=== PATIENT | female | born 1990 | race Caucasian/White ===

== ENCOUNTER 2017-05-19 15:59 | Inpatient (IN) ==
[2017-05-19 16:41] LABS: Basophils % 0.4 %; Eosinophils # 0.1 K/mcL (0.0-0.6); Hematocrit 41.4 % (35.3-44.9); Hemoglobin 13.6 g/dL (11.5-15.4); Immature Granulocytes % 0.4 % (0-4); Immature Platelets 9.2 % (1.1-6.1); Mean Corpuscular HGB Conc 32.9 g/dL (31.6-35.5); Mean Corpuscular Hemoglobin 29.4 pg (28.0-33.3); Mean Corpuscular Volume 89.6 fL (83.0-100.0); Mean Platelet Volume 11.5 fL (9.4-12.4); Monocytes # 0.3 K/mcL (0.0-1.3); Monocytes % 5.1 %; Neutrophils # 2.1 K/mcL (1.6-8.9); Platelet Count 168 K/mcL (140-400); Red Blood Count 4.62 M/mcL (3.82-4.97); Red Cell Distribution Width 12.5 % (11.5-14.5); Segmented Neutrophils % 41.1 %
[2017-05-19 16:46] LABS: Lymphocytes # 2.7 K/mcL (0.6-4.6); Platelet Estimate Normal (Normal); Reactive Lymphocytes Present (Not Present)
[2017-05-19 16:52] LABS: Bilirubin,Urine Negative (Negative); Blood,Urine Negative (Negative); Clarity,Urine Clear (Clear); Color,Urine Yellow (Yellow); Glucose,Urine (UA) >=1000 mg/dL (Normal); Ketones,Urine Negative (Negative); Leukocyte Esterase,Urine Negative (Negative); Nitrite,Urine Negative (Negative); PH,Urine 6.5 pH Units (5.0-8.0); Protein,Urine Negative (Neg-Trace); Specific Gravity,Urine > 1.030 (1.010-1.025); Urobilinogen,Urine Normal (Normal)
[2017-05-19 16:53] LABS: Amphetamine Screen,Urine Positive ng/mL (Cutoff=1000); Barbiturate Screen,Urine Negative ng/mL (Cutoff=200); Benzodiazepines Screen,Urine Negative ng/mL (Cutoff=200); Cannabinoid Screen,Urine Negative ng/mL (Cutoff = 50); Cocaine Screen,Urine Negative ng/mL (Cutoff= 300); Opiate Screen,Urine Negative ng/mL (Cutoff=300); Phencyclidine Screen,Urine Negative ng/mL (Cutoff=25)
[2017-05-19 16:56] LABS: Acetaminophen < 1.0 mcg/mL (10-30); Ethanol < 10 mg/dL (0-10); Salicylate < 5.0 mg/dL (15.0-30.0)
--- NOTE | 2017-05-19 17:14 | Emergency Department Note ---
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 She attempted to 4 Days Ago Just by Overdosing on Heroin. Patient Has Significant Depression and Coronary Artery Denies Any Other Symptoms or Issues at This Time. Patient Came for Help. Pt complaint: suicidal ideation, feels depressed Onset (ago): day(s) Duration: constant History of similar episodes: Yes Improves with: none Worsens with: other Context: recent drug abuse Alleged intoxication: No Associated Psychiatric Symptoms: depression, suicidal ideation Associated symptoms: Reports: denies other symptoms Self harm or harm to others: admits thoughts of self harm, has plan, has acted on plan, intentional overdose - Related Data Allergies Allergy/AdvReac Type Severity Reaction Status Date / Time No Known Allergies Allergy Verified 05/19/17 16:05 All systems ED: reviewed and negative except as stated. Review of Systems: As Per HPI Constitutional: Denies: fever Cardiovascular: Denies: chest pain, palpitations, dyspnea on exertion Respiratory: Denies: cough Gastrointestinal: Denies: nausea, vomiting, diarrhea Genitourinary: Denies: dysuria, frequency Musculoskeletal: Denies: back pain, neck pain Neurological: Denies: headache, weakness Psychiatric: Reports: depression, suicidal thoughts Endocrine: Denies: fatigue Past Medical History - Past Medical History Attestation: Yes The following information was validated with the patient. Source: patient Medical history: Reports: diabetes Psychiatric history: Reports: anxiety, depression - Social History Smoking Status: Current every day smoker Alcohol use: Reports: none Drug use: Reports: methamphetamine, prescription drug abuse Physical Exam - General Limitations: no limitations General appearance: alert, in no apparent distress - Head Head exam: atraumatic, normocephalic, normal inspection - ENT ENT exam: normal exam, normal oropharynx, mucous membranes moist - Neck Neck exam: Present: normal inspection, full ROM, trachea midline. Absent: tenderness - Respiratory Respiratory exam: Present: normal lung sounds bilaterally. Absent: respiratory distress - Cardiovascular Cardiovascular exam: Present: regular rate, normal rhythm, normal heart sounds - Abdominal Exam Abdominal exam: Present: soft, Non-Tender. Absent: tenderness, distention, guarding, rebound, rigidity - Extremities Exam Extremities exam: Present: normal inspection - Back Exam Back exam: Present: normal inspection, full ROM. Absent: tenderness - Neurological Exam Neurological exam: Present: alert, oriented X3, CN II-XII intact, normal gait - Skin Skin exam: Present: warm, dry, intact, normal color Course Course Narrative: Patient seen and examined this on arrival. See history of present illness. 6- year-old female with long history of substance abuse presents emergency room with suicidal ideation. Patient attempted to kill herself 4 days ago by overdosing on heroin. Patient is been significantly depressed and feels like she does not want. Denies any other medication ingestions at this time. Patient does have psychiatric history. Family member does have schizophrenia and bipolar. Patient does have what appears to be a significant bipolar presentation this time with a severely depressed stage at this point. Patient will be medically cleared. Patient denies any fevers chills nausea vomiting diarrhea. Denies chest pain shortness breath headache or vision change. Main complaint and evaluation of this time is the depression and suicidal ideation. Medical clearance lab evaluation to be completed at this time and consultation by psychiatric team will be established - Reevaluation(s) Reevaluation #1: Patient found to have significantly elevated glucose of greater than 1000. Patient also has hyponatremia. Corrected sodium is in the 1:30 range. Patient has what appears to be hyperosmolar hyperglycemic issue at this time. Fluids will be provided as well as single dose of insulin here in the emergency room. Patient will be admitted for medical evaluation and psychiatric consultation. No other concerns or issues. She does not appear to have a capped diabetic ketoacidosis Time: 17:24 Reevaluation #2: Patient was discussed with the hospitalist. No other concerns or issues. Patient will be admitted for definitive management at this time. Psychiatric team will be consulted in transit to the floor. Time: 18:05 Vital Signs Temperature 97.6 F 05/19/17 16:01 Pulse Rate 88 05/19/17 16:01 Respiratory Rate 16 05/19/17 16:01 Blood Pressure 115/82 05/19/17 16:01 O2 Sat by Pulse Oximetry 100 05/19/17 16:01 Temperature 97.6 F 05/19/17 16:01 Pulse Rate 88 05/19/17 16:01 Respiratory Rate 16 05/19/17 16:01 Blood Pressure 115/82 05/19/17 16:01 O2 Sat by Pulse Oximetry 100 05/19/17 16:01 Oxygen Delivery Oxygen Delivery Room Air Psych - MDM Narrative Medical decision making narrative: Suicidal ideation - Lab Data Lab results reviewed: Yes I reviewed the patient's lab results. Result diagrams: 05/19/17 16:33 05/19/17 16:33 Lab Results 05/19/17 05/19/17 05/19/17 Range/Units 16:33 16:33 16:35 WBC 5.1 (4.3-11.1) K/mcL RBC 4.62 (3.82-4.97) M/mcL Hgb 13.6 (11.5-15.4) g/dL Hct 41.4 (35.3-44.9) % MCV 89.6 (83.0-100.0) fL MCH 29.4 (28.0-33.3) pg MCHC 32.9 (31.6-35.5) g/dL RDW 12.5 (11.5-14.5) % Plt Count 168 (140-400) K/mcL MPV 11.5 (9.4-12.4) fL Immature Gran % 0.4 (0-4) % Seg Neutrophils % 41.1 % Lymphocytes % 52.0 % Monocytes % 5.1 % Eosinophils % 1.0 % Basophils % 0.4 % Neutrophils # 2.1 (1.6-8.9) K/mcL Lymphocytes # 2.7 (0.6-4.6) K/mcL Monocytes # 0.3 (0.0-1.3) K/mcL Eosinophils # 0.1 (0.0-0.6) K/mcL Basophils # 0.0 (0.0-0.2) K/mcL Reactive Lymphocytes Present A (Not Present) Platelet Estimate Normal (Normal) Immature Plt Fraction 9.2 H (1.1-6.1) % Sodium 117 L* (136-145) mEq/L Potassium 4.5 (3.5-5.1) mEq/L Chloride 84 L (98-107) mEq/L Carbon Dioxide 25 (23-29) mEq/L BUN 14 (6-20) mg/dL Creatinine 0.79 (0.60-1.20) mg/dL Est GFR ( Amer) > 60 (> 60) Est GFR (Non-Af Amer) > 60 (> 60) BUN/Creatinine Ratio 18 (6-26) Glucose 1047 H* (70-105) mg/dL Calculated Osmolality 297 (280-300) Calcium 9.3 (8.6-10.3) mg/dL TSH 0.587 (0.340-5.600) mcIU/mL Urine Color Yellow (Yellow) Urine Clarity Clear (Clear) Urine pH 6.5 (5.0-8.0) pH Units Ur Specific [place] > 1.030 H (1.010-1.025) Urine Protein Negative (Neg-Trace) mg/dL Urine Glucose (UA) >=1000 H (Normal) mg/dL Urine Ketones Negative (Negative) mg/dL Urine Blood Negative (Negative) Urine Nitrite Negative (Negative) Urine Bilirubin Negative (Negative) Urine Urobilinogen Normal (Normal) mg/dL Ur Leukocyte Esterase Negative (Negative) Salicylates < 5.0 L (15.0-30.0) mg/dL Urine Opiates Screen (Cugkhm=256) ng/mL Acetaminophen < 1.0 L (10-30) mcg/mL Ur Barbiturates Screen (Nmbreb=554) ng/mL Ur Phencyclidine Scrn (Cutoff=25) ng/mL Ur Amphetamines Screen (Jkzkln=7174) ng/mL U Benzodiazepines Scrn (Ipaywl=867) ng/mL Urine Cocaine Screen (Cutoff= 300) ng/mL U Marijuana (THC) Screen (Cutoff = 50) ng/mL Ethyl Alcohol < 10 (0-10) mg/dL 05/19/17 Range/Units 16:35 WBC (4.3-11.1) K/mcL RBC (3.82-4.97) M/mcL Hgb (11.5-15.4) g/dL Hct (35.3-44.9) % MCV (83.0-100.0) fL MCH (28.0-33.3) pg MCHC (31.6-35.5) g/dL RDW (11.5-14.5) % Plt Count (140-400) K/mcL MPV (9.4-12.4) fL Immature Gran % (0-4) % Seg Neutrophils % % Lymphocytes % % Monocytes % % Eosinophils % % Basophils % % Neutrophils # (1.6-8.9) K/mcL Lymphocytes # (0.6-4.6) K/mcL Monocytes # (0.0-1.3) K/mcL Eosinophils # (0.0-0.6) K/mcL Basophils # (0.0-0.2) K/mcL Reactive Lymphocytes (Not Present) Platelet Estimate (Normal) Immature Plt Fraction (1.1-6.1) % Sodium (136-145) mEq/L Potassium (3.5-5.1) mEq/L Chloride (98-107) mEq/L Carbon Dioxide (23-29) mEq/L BUN (6-20) mg/dL Creatinine (0.60-1.20) mg/dL Est GFR ( Amer) (> 60) Est GFR (Non-Af Amer) (> 60) BUN/Creatinine Ratio (6-26) Glucose (70-105) mg/dL Calculated Osmolality (280-300) Calcium (8.6-10.3) mg/dL TSH (0.340-5.600) mcIU/mL Urine Color (Yellow) Urine Clarity (Clear) Urine pH (5.0-8.0) pH Units Ur Specific [place] (1.010-1.025) Urine Protein (Neg-Trace) mg/dL Urine Glucose (UA) (Normal) mg/dL Urine Ketones (Negative) mg/dL Urine Blood (Negative) Urine Nitrite (Negative) Urine Bilirubin (Negative) Urine Urobilinogen (Normal) mg/dL Ur Leukocyte Esterase (Negative) Salicylates (15.0-30.0) mg/dL Urine Opiates Screen Negative (Zmazyz=095) ng/mL Acetaminophen (10-30) mcg/mL Ur Barbiturates Screen Negative (Whzdaq=507) ng/mL Ur Phencyclidine Scrn Negative (Cutoff=25) ng/mL Ur Amphetamines Screen Positive H (Vxfhyj=1704) ng/mL U Benzodiazepines Scrn Negative (Vfuivw=244) ng/mL Urine Cocaine Screen Negative (Cutoff= 300) ng/mL U Marijuana (THC) Screen Negative (Cutoff = 50) ng/mL Ethyl Alcohol (0-10) mg/dL Psychiatric Medical Clearance - Medical Clearance Checklist Does the patient have a NEW psychiatric condition?: No Any abnormalities indicating possible medical illness?: No Any history of medical issues?: No Medical History: Suicidal ideation (Acute) Depression (Acute) No Social History Section defined Any abnormal vital signs prior to transfer?: No Current Vitals: Last Vital Signs Temp 97.6 F 05/19/17 16:01 Pulse 88 05/19/17 16:01 Resp 16 05/19/17 16:01 BP 115/82 05/19/17 16:01 Pulse Ox 100 05/19/17 16:01 Is the patient intoxicated or cognitively impaired?: No Psychiatric Lab Panel: Drug Levels and Toxicity 05/19/17 05/19/17 16:33 16:35 Urine Opiates Screen Negative Acetaminophen < 1.0 L Ur Barbiturates Screen Negative Ur Phencyclidine Scrn Negative Ur Amphetamines Screen Positive H U Benzodiazepines Scrn Negative Urine Cocaine Screen Negative U Marijuana (THC) Screen Negative Ethyl Alcohol < 10 Any abnormalities on the physical exam?: No Any abnormal labs?: No Abnormal Labs: Abnormal lab results Reactive Lymphocytes Present (Not Present) A 05/19/17 16:33 Immature Plt Fraction 9.2 % (1.1-6.1) H 05/19/17 16:33 Sodium 117 mEq/L (136-145) L* 05/19/17 16:33 Chloride 84 mEq/L (98-107) L 05/19/17 16:33 Glucose 1047 mg/dL (70-105) H* 05/19/17 16:33 Ur Specific [place] > 1.030 (1.010-1.025) H 05/19/17 16:35 Urine Glucose (UA) >=1000 mg/dL (Normal) H 05/19/17 16:35 Salicylates < 5.0 mg/dL (15.0-30.0) L 05/19/17 16:33 Acetaminophen < 1.0 mcg/mL (10-30) L 05/19/17 16:33 Ur Amphetamines Screen Positive ng/mL (Zyzdpa=9263) H 05/19/17 16:35 Does the patient require durable medical equiptment?: No Is the patient ambulatory?: Yes Is the patient a fall risk?: No Has the patient been medically cleared?: Yes Any acute medical condition require Tx prior to transfer?: No Statement of Medical Clearance: I have evaluated the patient, reviewed diagnostic information, and certify that the patient's medical condition is sufficiently stable that transfer to the psychiatric unit does not pose a significant risk of deterioration.
[2017-05-19 17:22] LABS: BUN/Creatinine Ratio 18 (6-26); Blood Urea Nitrogen 14 mg/dL (6-20); Calcium 9.3 mg/dL (8.6-10.3); Carbon Dioxide 25 mEq/L (23-29); Chloride 84 mEq/L (98-107); Glucose 1047 mg/dL (70-105); Osmolality,Calculated 297 (280-300); Potassium 4.5 mEq/L (3.5-5.1); Sodium 117 mEq/L (136-145); Thyroid Stimulating Hormone 0.587 mcIU/mL (0.340-5.600); eGFR For African Americans > 60 (> 60); eGFR For Non-African Americans > 60 (> 60)
[2017-05-19] MEDS ORDERED: 0.9 % Sodium Chloride 1,000 ML IVC ONE (17:23)
[2017-05-19] MEDS ORDERED: Insulin Human Regular 10 UNIT in 0.9 % Sodium Chloride 10 ML IV ONE (17:25)
[2017-05-19] MEDS ORDERED: *HR* LORazepam 2 MG/ML VIAL IVP ONE (18:05)
[2017-05-19 18:22] LABS: VBG HCO3 27 mEq/L (21-27); VBG PCO2 49 mmHg (41-51); VBG PH 7.35 pH Units (7.32-7.42); VBG PO2 46 mmHg (25-50)
[2017-05-19] MEDS ORDERED: D5% in 0.45% NACL 1,000 ML IVC PRN (20:09)
[2017-05-19] MEDS ORDERED: D5% in 0.45% NACL w KCl 20 MEQ/1,000 ML MLS IVC PRN (20:09)
[2017-05-19] MEDS ORDERED: Insulin Regular, Human 100 UNIT/ML IV PRN ×2 (20:09)
[2017-05-19] MEDS ORDERED: *HR* Dextrose 50 % in Water (Syg) 50 ML SYRINGE IVP PRN (20:09)
[2017-05-19] MEDS ORDERED: Naloxone 0.4 MG/ML INJ IVP PRN (20:13)
[2017-05-19] MEDS ORDERED: Insulin Human Regular 100 UNIT in 0.9 % Sodium Chloride 100 ML IVC SCH (20:15)
[2017-05-19] MEDS ORDERED: 0.9 % Sodium Chloride 1,000 ML IVC PRN (20:15)
[2017-05-19] MEDS ORDERED: 0.45 % Sodium Chloride w/KCl 20 MEQ/1,000 ML MLS IVC SCH ×2 (20:15)
[2017-05-19] MEDS ORDERED: 0.9 % Sodium Chloride 1,000 ML IVC SCH (20:15)
--- NOTE | 2017-05-19 20:17 | Internal Med History&Physical ---
Date of Encounter: 05/19/17 Time of Encounter: 20:21 Assessment and Plan (1) Uncontrolled type 2 DM with hyperosmolar nonketotic hyperglycemia Current visit: Yes Status: Acute HHS protocol, insulin gtt, close CBG monitoring Ivf high risk for decompensation check CXR, EKG UA unremarkable Etiology of HHS likely lack of compliance due to depression/suicidal ideations (2) Suicidal ideation Current visit: Yes Status: Acute duo- dx urine tox with meth consult psych sitter suicide watch treat medical illness above (3) Hyponatremia Current visit: Yes Status: Acute likely related dehydration and hyperglycemia - treat above (4) Depression Current visit: Yes Status: Acute Qualifiers: Depression Type: major depressive disorder Major depression episode severity: severe Psychotic features: without psychotic features Qualified Code(s): F32.2 - Major depressive disorder, single episode, severe without psychotic features Internal Medicine - H&P: HPI Chief complaint: Nausea/emesis, generalized weakness, fatigue History of present illness: Ms. Roth is a 26 year old female with hx of depression, DMI who presents with Nausea/emesis, generalized weakness, fatigue. Found HHS along with suicidal ideations. She is suppose to use insulin at home for DMI but she has been depressed lately and thought that if her sugars were out of control, she would not live long. She hopes that she could sleep and sleep and not wake up. She ran away from home and it was her mother who brought her in. She mentions that she "can't put her feelings into words". On review, she has some calvin-umbilical epigastric discomfort. EKG not available Past Med Surg Social Fam HX - Past Medical History Medical history: diabetes Psychiatric history: anxiety, depression - Social History Smoking Status: Current every day smoker Alcohol use: none Drug use: methamphetamine, prescription drug abuse Internal Medicine - H&P: Meds 3 Allergy/AdvReac Type Severity Reaction Status Date / Time No Known Allergies Allergy Verified 05/19/17 16:05 All Systems PM: A 10-system review of systems was performed and is negative for pertinent findings except as documented above in the HPI. Review of systems: ROS 14 point review of systems reviewed as best as possible given presentation. Pertinent positive or negative as per HPI or otherwise reviewed as negative - Constitutional Vitals: Temp Pulse Resp BP Pulse Ox 97.6 F 88 16 115/82 100 05/19/17 16:01 05/19/17 16:01 05/19/17 16:01 05/19/17 16:01 05/19/17 16:01 Exam: General - AAO x 3 Psych - Appropriate affect/speech. No agitation Eyes - RINA. Eye lids intact. No scleral icterus Neuro - Slight somnolent but conversational and moving all 4 extremities Heart - Sinus. RRR. S1 and S2 present. No added HS/murmurs appreciated. No elevated JVD appreciated. Lung - Adequate air entry b/l, No crackles/wheezes appreciated GI - Epigastric discomfort. Soft, no G/R. No hepatosplenomegaly/ascites. BS+ - No CVA/suprapubic tenderness or palpable bladder distension Skin - Intact. No rash/petechiae/ecchymosis. Warm extremities Internal Med - H&P Results - Labs CBC & Chem 7: 05/19/17 16:33 05/19/17 16:33 Labs: Short CBC 05/19/17 Range/Units 16:33 WBC 5.1 (4.3-11.1) K/mcL Hgb 13.6 (11.5-15.4) g/dL Hct 41.4 (35.3-44.9) % Plt Count 168 (140-400) K/mcL Neutrophils # 2.1 (1.6-8.9) K/mcL BMP 05/19/17 16:33 Sodium 117 L* Potassium 4.5 Chloride 84 L Carbon Dioxide 25 BUN 14 Creatinine 0.79 Glucose 1047 H* Calcium 9.3 Urine 05/19/17 Range/Units 16:35 Urine Color Yellow (Yellow) Urine Clarity Clear (Clear) Urine pH 6.5 (5.0-8.0) pH Units Ur Specific [place] > 1.030 H (1.010-1.025) Urine Protein Negative (Neg-Trace) mg/dL Urine Glucose (UA) >=1000 H (Normal) mg/dL - ABG Interpretation ABG results: 05/19/17 17:57 VBG pH 7.35 VBG pCO2 49 VBG pO2 46 VBG HCO3 27
[2017-05-19] MEDS ORDERED: Ondansetron 4 MG/2 ML VIAL IVP PRN (20:19)
[2017-05-19] MEDS: 0.9 % Sodium Chloride 1,000 ML IVC SCH (20:55)
[2017-05-20 03:49] LABS: Basophils % 0.3 %; Eosinophils # 0.1 K/mcL (0.0-0.6); Eosinophils % 1.8 %; Hematocrit 31.5 % (35.3-44.9); Hemoglobin 10.8 g/dL (11.5-15.4); Immature Granulocytes % 0.3 % (0-4); Lymphocytes # 3.4 K/mcL (0.6-4.6); Lymphocytes % 55.2 %; Mean Corpuscular HGB Conc 34.3 g/dL (31.6-35.5); Mean Corpuscular Hemoglobin 29.3 pg (28.0-33.3); Mean Corpuscular Volume 85.4 fL (83.0-100.0); Mean Platelet Volume 11.3 fL (9.4-12.4); Monocytes # 0.3 K/mcL (0.0-1.3); Monocytes % 5.4 %; Neutrophils # 2.3 K/mcL (1.6-8.9); Platelet Count 169 K/mcL (140-400); Red Blood Count 3.69 M/mcL (3.82-4.97); Red Cell Distribution Width 12.5 % (11.5-14.5)
[2017-05-20 03:53] LABS: Estimated Average Glucose > 355 mg/dl; Hemoglobin A1C >= 14.1 %
[2017-05-20] MEDS ORDERED: *HR* Dextrose 50 % in Water (Syg) 50 ML SYRINGE IVP PRN (04:00)
[2017-05-20] MEDS ORDERED: D5% in Water 1,000 ML IVC PRN (04:00)
[2017-05-20] MEDS ORDERED: Dextrose Gel 15 GM/37.5 ML TUBE PO PRN ×2 (04:00)
[2017-05-20] MEDS ORDERED: 0.9 % Sodium Chloride 1,000 ML ONE (04:10)
[2017-05-20 04:15] LABS: Alanine Aminotransferase 41 Units/L (7-52); Albumin 3.1 g/dL (3.5-5.7); Albumin/Globulin Ratio 1.3 (1.1-2.2); Alkaline Phosphatase 97 Units/L (34-104); Aspartate Amino Transferase 14 Units/L (13-39); BUN/Creatinine Ratio 24 (6-26); Bilirubin,Total 0.3 mg/dL (0.3-1.0); Blood Urea Nitrogen 9 mg/dL (6-20); Calcium 8.2 mg/dL (8.6-10.3); Carbon Dioxide 23 mEq/L (23-29); Chloride 109 mEq/L (98-107); Globulin 2.3 g/dL (2.4-3.5); Glucose 150 mg/dL (70-105); Osmolality,Calculated 282 (280-300); Potassium 3.3 mEq/L (3.5-5.1); Sodium 135 mEq/L (136-145); Total Protein 5.4 g/dL (6.4-8.9); eGFR For African Americans > 60 (> 60); eGFR For Non-African Americans > 60 (> 60)
[2017-05-20] MEDS: 0.9 % Sodium Chloride 1,000 ML IVC SCH (04:16)
[2017-05-20 04:20] LABS: Platelet Estimate Normal (Normal); Reactive Lymphocytes Present (Not Present)
[2017-05-20] MEDS ORDERED: *HR* Enoxaparin 40 MG/0.4 ML SYRINGE SQ SCH (06:00)
[2017-05-20] MEDS ORDERED: Insulin LISPRO 300 UNITS/3 ML VIAL SQ SCH ×3 (07:30→21:00)
[2017-05-20] MEDS ORDERED: Insulin DETEMIR 100 UNIT/ML X5UNITS SQ SCH (09:00)
[2017-05-20 10:11] LABS: BUN/Creatinine Ratio 23 (6-26); Blood Urea Nitrogen 9 mg/dL (6-20); Calcium 8.7 mg/dL (8.6-10.3); Carbon Dioxide 23 mEq/L (23-29); Chloride 103 mEq/L (98-107); Glucose 351 mg/dL (70-105); Osmolality,Calculated 285 (280-300); Potassium 4.2 mEq/L (3.5-5.1); Sodium 131 mEq/L (136-145); eGFR For African Americans > 60 (> 60); eGFR For Non-African Americans > 60 (> 60)
[2017-05-20] MEDS ORDERED: Insulin DETEMIR 100 UNIT/ML X5UNITS SQ ONE (10:28)
[2017-05-20] MEDS: Insulin LISPRO 300 UNITS/3 ML VIAL SQ SCH ×2 (11:57→17:08)
[2017-05-20] MEDS ORDERED: Ketorolac 15 MG/ML VIAL IVP ONE (14:12)
--- NOTE | 2017-05-20 15:34 | Discharge Summary ---
Date of Encounter: 05/20/17 Time of Encounter: 15:31 - Discharge Diagnosis (1) Uncontrolled type 2 DM with hyperosmolar nonketotic hyperglycemia Priority: Primary Status: Acute (2) Depression Priority: Secondary Status: Acute Qualifiers: Depression Type: major depressive disorder Major depression episode severity: severe Psychotic features: without psychotic features Qualified Code(s): F33.2 - Major depressive disorder, recurrent severe without psychotic features (3) Hyponatremia Priority: Secondary Status: Acute (4) Suicidal ideation Priority: Secondary Status: Acute - Discharge Medications Prescriptions: Insulin Aspart Prot/Insuln Asp [Novolog Mix 70-30 Flexpen Syrn] 20 unit SQ BID # 1 insuln.pen Home Medications: Insulin Aspart Prot/Insuln Asp [Novolog Mix 70-30 Flexpen Syrn] 20 unit SQ BID # 1 insuln.pen 05/20/17 [Rx] Allergies/Adverse Reactions: 3 Allergy/AdvReac Type Severity Reaction Status Date / Time No Known Allergies Allergy Verified 05/19/17 16:05 Date of admission: 05/19/17 20:22 Primary care physician: PCP NONE Consults: 05/19/17 23:10 Consult to International Tax Manager [CONS] Routine Reason for SW Consult: SI Discharging clinician: Brooks Dee Anticipated date of discharge: 05/20/17 - Patient Status Disposition: Transfer Psychiatric Hosp Condition: Good Functional capacity at discharge: independent ambulation Overall status at discharge: patient is progressing back to baseline - Discharge Instructions Follow Up With: NONE,PCP [Primary Care Provider] - (PATIENT IS WAITING ON A BED AT A PSYCH UNIT , NO PCP APPOINTMENT NEEDED) - Diet and Activity Activity: increase activity as tolerated Diet: diabetic diet, low salt diet Hospital course: Ms. Roth is a 26 year old female With history of uncontrolled diabetes mellitus type 2, drug abuse who was hospitalized here with suicidal ideation and possible suicide attempt along with severe hyperglycemic hyperosmolar state. She was started on treatment for this with intravenous insulin infusion along with IV fluids. She was severely dehydrated. Her symptoms have slowly improved with this aggressive treatment regimen. Her blood sugars are now better controlled. Her hyperosmolar state has resolved. Her sodium levels are back to normal. She appears to be having long-standing depression for which she has so far not been on appropriate treatment. She was evaluated by psychiatry and recommended admission to inpatient psychiatric unit. She is medically stable at this time to admitted to psychiatric unit. - Time Spent with Patient Total time spent providing and/or coordinating discharge services: Greater than 30 minutes (32 min) - Constitutional Vitals: Temp Pulse Resp BP Pulse Ox 99.6 F 80 14 107/76 97 05/20/17 11:26 05/20/17 11:26 05/20/17 11:26 05/20/17 11:26 05/20/17 11:26 General appearance: Present: cooperative, A&O X 3, answers questions appropriately - Respiratory Respiratory exam: Present: CTAB. Absent: accessory muscle use, rales, rhonchi, wheezes - Cardiovascular Cardiovascular exam: Present: RRR, +S1, +S2. Absent: diastolic murmur, gallop, rubs, systolic murmur - GI/Abdominal GI/Abdominal exam: Present: normal bowel sounds, soft, no peritoneal signs. Absent: distended, tenderness - Extremities Exam Extremities exam: Present: tenderness (left shoulder), warm, radial pulses palpable and symmetrical. Absent: calf tenderness, cyanotic, pedal edema - Neurological Exam Neurological exam: Present: CN II-XII intact, oriented X3, no focal deficits. Absent: facial droop, speech deficit
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
[2017-05-20 19:58] VITALS: BP 106/69
== END 2017-05-20 21:25 | DRG 638 ==
LOC: EMEROO 15:59 → 2NNU 15:59
PROVIDERS: ADMIT Internal Medicine; ATTEND Internal Medicine

== ENCOUNTER 2017-05-20 21:32 | Inpatient (IN) ==
[2017-05-20] MEDS ORDERED: *HR* Dextrose 50 % in Water (Syg) 50 ML SYRINGE IVP PRN (21:48)
[2017-05-20] MEDS ORDERED: D5% in Water 1,000 ML IVC PRN (21:48)
[2017-05-20] MEDS ORDERED: Dextrose Gel 15 GM/37.5 ML TUBE PO PRN ×2 (21:48)
[2017-05-20] MEDS ORDERED: Mag Hydrox/Al Hydrox/Simeth 30 ML UDC PO PRN (21:59)
[2017-05-20] MEDS ORDERED: MOM Conc 10 ML UD.LIQ PO PRN (21:59)
[2017-05-20] MEDS ORDERED: Ibuprofen 400 MG TABLET PO PRN (21:59)
[2017-05-20] MEDS ORDERED: *HR* LORazepam 2 MG/ML VIAL IM PRN (21:59)
[2017-05-20] MEDS ORDERED: Haloperidol Lactate 5 MG/ML VIAL IM PRN (21:59)
[2017-05-20] MEDS ORDERED: *HR* LORazepam 1 MG TABLET PO PRN (21:59)
[2017-05-20] MEDS: hydrOXYzine pamoate 25 MG CAPSULE PO PRN (22:47)
[2017-05-20] MEDS: traZODone 50 MG TABLET PO PRN (22:47)
[2017-05-21] MEDS: Insulin LISPRO 300 UNITS/3 ML VIAL SQ SCH ×4 (08:15→21:25)
[2017-05-21] MEDS: Insulin DETEMIR 100 UNIT/ML X5UNITS SQ SCH (09:12)
--- NOTE | 2017-05-21 13:20 | Psychiatry History & Physical ---
Date of Encounter: 05/21/17 Time of Encounter: 13:00 History of Present Illness Patient Stated Chief Complaint: I took an overdose of heroin Medicare Admission Attestation: For traditional Medicare patients the provided hospital inpatient services are reasonable and necessary and in the case of services not specified as inpatient -only under 42 CFR 419.22 (n), that they are appropriately provided as inpatient services in accordance 42 CFR 412.3. For Critical Access Hospital the patient may reasonably be expected to be discharged or transferred to a hospital within 96 hours after admission to the Critical Access Hospital. Admitted From: Intrahospital Transfer Plans for Post Hospital Care: Home History of Present Illness: Ms. oRth is a 26 year old female The patient is a 26-year-old white female from [facility] in [facility] Her chief complaint as I want to go home. The patient recently visited with her mother. History of present illness: The patient was in her usual state of health but has a significant history of substance abuse. The patient had been using marijuana for many years and then started using harder drugs including methamphetamine one year ago. This occurred when her left he was a mean raji and she had been to him for 6 years they have 3 kids together. Ages 63 and 2. The patient stated that she "wanted to be normal" and that she wanted to escape reality. She obtained some heroin and tried to take an overdose however she was seen evaluated and treated in the ICU. The patient has health problems including diabetes mellitus. She developed diabetes insulin-dependent about 6 years ago. The patient has used marijuana since age 13 she continued to use until she quit about one year ago. The patient drank alcohol she used to drink casually. The patient denies use of speed code and she said that she does not like the use of heroin and Xanax barbiturates or hallucinogens. Nonetheless the patient and continued to use methamphetamine and this addiction continued off for the past year this affected her relationship with her mother and friends. She felt that she was being stressed with the diabetes and being a single parent. Her diabetes was under poor control. The patient has never been to rehabilitation. She has never been treated with Suboxone, methadone, Narcan were vivid trial. The patient's family doctor put her on some psychiatric medicines these were antidepressants but they increased her anxiety. The patient has the most recent suicide attempt but no other previous attempts no psychiatric hospitalization. Past medical history: Surgeries hysterectomy one year ago tonsils and adenoids removed Illnesses: Diabetes type one 7 years ago. She has visual problems and wears glasses. She reports no allergies. Her medicines include the insulin pens she is AB all Family history mother had a psychiatric illness she had problems with alcohol and drugs but later medications helped her mother. There is no history of suicide Social history the patient graduated high school. She was going to go in the hours she fell in love with her and got and became and mother she did work as a doctor of nurse anesthesia practice she lives with her mom or dad and her kids now her ex- is moving back into the house he was a conservation science officer but recently had a stroke and is off work. The patient reports no abuse in her upbringing. Review of systems. The patient has low self-esteem diminished interest guilt worries about her health diminished energy and poor concentration appetite is very increased. The patient has lost significant weight she has limited activity she has variable sleep she has suicidal ideation with thoughts of overdose. The patient is ambivalent about going to rehabilitation for methamphetamine or going to [facility] in [place] Past Med Surg Social Fam HX - Past Medical History Source: patient Medical history: diabetes - Past Psychiatric History Psychiatric history: Reports: bipolar Family psychiatric history: Yes Family History of Suicide: None - Past Surgical History Surgical History: hysterectomy - Social History Smoking Status: Current every day smoker Smokeless Tobacco Status: No Alcohol use: none Drug use: methamphetamine Medications & Allergies Insulin Aspart Prot/Insuln Asp [Novolog Mix 70-30 Flexpen Syrn] 20 unit SQ BID # 1 insuln.pen 05/20/17 [Rx] 3 Allergy/AdvReac Type Severity Reaction Status Date / Time No Known Allergies Allergy Verified 05/19/17 16:05 Review of Systems Constitutional: Reports: weakness, weight change Psychiatric: Reports: suicidal ideation, auditory hallucinations Mental Status Exam Patient orientation: Yes Person, Yes Time, Yes Place, Yes Circumstance Level of alertness: Alert, Follows commands Patient appearance: Unkempt, Thin Behavior: anxious, tearful Psychomotor activity: Slowed Eye contact: Minimal Contact Mood description: Depressed Affect description: dysphoric Speech pattern: Normal rhythm, Limited Speech volume: Normal, Soft/Quiet Thought process: Intact Thought content: Yes Suicidal ideation Attention span: Capable of Focused Attention Memory description: Grossly Intact Patient reliability: Reliable Historian Intelligence estimate: Average Judgment: Fair Insight: Partial Exam - HEENT Head exam IM: Present: normal inspection, normocephalic Eye exam IM: Present: EOMI ENT exam IM: Present: mucous membranes moist - Neurological Neurological exam IM: Present: alert, normal gait - Respiratory Respiratory exam IM: Present: decreased breath sounds - Extremities Extremities exam IM: Present: warm - Skin Skin exam IM: Present: warm Results - Vital Signs Vital signs: Temp Pulse Resp BP 98.3 F 76 16 106/68 05/21/17 09:00 05/21/17 09:00 05/21/17 09:00 05/21/17 09:00 - Labs Labs: Laboratory Last Values POC Glucose 223 (58-89) H 05/21/17 11:19 Assessment and Plan (1) Other recurrent depressive disorders Current visit: Yes Status: Acute Plan: Admit inpatient for safety and stabilization, Close observation, Suicide Precautions per unit protocol, Encourage participation in unit milieu, Monitor sleep, Family/Supportive other meeting Risks, benefits, side effects, alternatives discussed w/pt: Yes Patient agreeable to treatment: Yes Plans for Post Hospital Care: Home Estimated Length of Stay (Days): 12 (2) Suicidal ideations Current visit: Yes Status: Acute Plan: Admit inpatient for safety and stabilization, Close observation, Suicide Precautions per unit protocol Risks, benefits, side effects, alternatives discussed w/pt: Yes Patient agreeable to treatment: Yes Plans for Post Hospital Care: Home Estimated Length of Stay (Days): 12 (3) Other stimulant dependence with withdrawal Current visit: Yes Status: Acute Plan: Admit inpatient for safety and stabilization, Close observation, Monitor sleep, Monitor appetite Risks, benefits, side effects, alternatives discussed w/pt: Yes Patient agreeable to treatment: Yes Plans for Post Hospital Care: Home (4) Uncontrolled type 2 DM with hyperosmolar nonketotic hyperglycemia Current visit: No Status: Acute Plan: Admit inpatient for safety and stabilization, Group Therapy, Family/ Supportive other meeting Risks, benefits, side effects, alternatives discussed w/pt: Yes Patient agreeable to treatment: Yes Plans for Post Hospital Care: Hospice - Home
[2017-05-21] MEDS: hydrOXYzine pamoate 25 MG CAPSULE PO PRN (15:24)
[2017-05-21] MEDS: Mirtazapine 15 MG TABLET PO SCH (21:25)
[2017-05-22] MEDS: Insulin DETEMIR 100 UNIT/ML X5UNITS SQ SCH (08:15)
[2017-05-22] MEDS: Insulin LISPRO 300 UNITS/3 ML VIAL SQ SCH ×4 (08:17→21:06)
--- NOTE | 2017-05-22 14:24 | Psychiatry Progress Note ---
Date of Encounter: 05/22/17 Time of Encounter: 14:15 Subjective Interval history: The patient remains distressed. She has features of major depression with low mood and poor socialization and withdrawal sadness and crying. Today she returns to the same that she wants to have her children back just to labor them and hold them and that everything will be fine. When talking about substances abuse she says that she will no longer have access to substances she says that she did not sure that she needs inpatient rehabilitation but would be willing to go to outpatient rehabilitation. She is also going through a divorce and does not plan on talking to the ex- is the father children. Patient's mother's most common visit and may have some knowledge of local recovery groups. The patient I discussed recovery options in her County. The patient was willing to follow-up at [facility] Period the patient's diabetes is been poorly controlled her blood sugar 431 was obtained today. The patient also has phlebitis of the left arm this is causing and tingling in the left thumb. There is a raised area approximately 3 cm long by 1/2 cm across on the volar surface of the left forearm. There is some yellow discoloration. This is where she had a potassium infusion which she is reported. The patient started mirtazapine 15 mg daily at bedtime she notes nightmares but no other side effects to this medicine. She would like to stay on the same dose the medicine she reports significant anxiety and will will have as needed hydroxyzine and scheduled hydroxyzine Review of Systems Integumentary: Reports: lesions Neurological: Reports: weakness, numbness, paresthesias Psychiatric: Reports: suicidal ideation, auditory hallucinations Endocrine: Reports: polydipsia Objective: Exam Patient orientation: Yes Person, Yes Time, Yes Place, Yes Circumstance Level of alertness: Alert Patient appearance: Thin Behavior: anxious, tearful Psychomotor activity: Slowed Eye contact: Maintains Eye Contact Mood description: Depressed Affect description: labile, tearful Speech pattern: Normal rate, Normal rhythm, Coherent Speech volume: Soft/Quiet Thought process: Logical, Linear Thought content: Yes Suicidal ideation, Yes Preoccupation Judgment: Limited Insight: Minimal Results - Vital Signs Vital Signs: Temp Pulse Resp BP 97.8 F 91 16 108/71 05/22/17 09:00 05/22/17 09:00 05/22/17 09:00 05/22/17 09:00 - Labs Labs: Laboratory Results - last 24 hr 05/21/17 05/21/17 05/22/17 15:15 20:34 08:08 POC Glucose 157 H 377 H 358 H 05/22/17 05/22/17 11:53 11:54 POC Glucose 435 H* 431 H* Assessment and Plan (1) Other recurrent depressive disorders Current visit: Yes Status: Acute Plan: Continue hospitalization, Close observation, Monitor sleep Risks, benefits, side effects, alternatives discussed w/pt: Yes Patient agreeable to treatment: Yes (2) Suicidal ideations Current visit: Yes Status: Acute Plan: Continue hospitalization, Close observation, Suicide Precautions per unit protocol Risks, benefits, side effects, alternatives discussed w/pt: Yes Patient agreeable to treatment: Yes (3) Other stimulant dependence with withdrawal Current visit: Yes Status: Acute Plan: Continue hospitalization, Suicide Precautions per unit protocol, Encourage participation in unit milieu, Monitor appetite, Family/Supportive other meeting Risks, benefits, side effects, alternatives discussed w/pt: Yes Patient agreeable to treatment: Yes (4) Uncontrolled type 2 DM with hyperosmolar nonketotic hyperglycemia Current visit: No Status: Acute Plan: Continue hospitalization, Other Risks, benefits, side effects, alternatives discussed w/pt: Yes Patient agreeable to treatment: Yes (5) Phlebitis after infusion Current visit: Yes Status: Acute Plan: Close observation Risks, benefits, side effects, alternatives discussed w/pt: Yes Patient agreeable to treatment: Yes Qualifiers: Encounter type: initial encounter Qualified Code(s): T80.1XXA - Vascular complications following infusion, transfusion and therapeutic injection, initial encounter Consult Discharge Plan - Plan Referrals: Chel Robison [facility] [Outside] (To establish in services, you may walk -in any Saturday through Saturday from 8:00am 12:00pm or 1:00pm 4:00pm. When you come in, you will be completing paperwork, meeting with an mid level clinician , and developing a treatment plan. You will receive follow- up appointments for on-going mental health services, which could include community support, individual counseling, groups and/or psychiatric medication management. You may also be referred to see the primary care provider in the clinic if needed as well. Please bring your insurance card, photo ID and medication list when you come in the first time. )
[2017-05-22 16:14] LABS: Basophils % 0.5 %; Eosinophils # 0.1 K/mcL (0.0-0.6); Hematocrit 38.1 % (35.3-44.9); Immature Granulocytes % 0.9 % (0-4); Lymphocytes # 2.1 K/mcL (0.6-4.6); Lymphocytes % 37.2 %; Mean Corpuscular HGB Conc 32.8 g/dL (31.6-35.5); Mean Corpuscular Hemoglobin 29.6 pg (28.0-33.3); Mean Corpuscular Volume 90.3 fL (83.0-100.0); Monocytes # 0.3 K/mcL (0.0-1.3); Monocytes % 5.4 %; Neutrophils # 3.2 K/mcL (1.6-8.9); Nucleated Red Blood Cells 0.3 /100 WBC (0); Platelet Count 197 K/mcL (140-400); Red Blood Count 4.22 M/mcL (3.82-4.97); Red Cell Distribution Width 12.9 % (11.5-14.5)
[2017-05-22 16:16] LABS: Hemoglobin 12.5 g/dL (11.5-15.4)
[2017-05-22 16:34] LABS: Estimated Average Glucose > 355 mg/dl; Hemoglobin A1C >= 14.1 %
[2017-05-22 16:41] LABS: BUN/Creatinine Ratio 42 (6-26); Blood Urea Nitrogen 24 mg/dL (6-20); Calcium 8.7 mg/dL (8.6-10.3); Carbon Dioxide 25 mEq/L (23-29); Chloride 98 mEq/L (98-107); Glucose 342 mg/dL (70-105); Osmolality,Calculated 286 (280-300); Potassium 4.8 mEq/L (3.5-5.1); Sodium 129 mEq/L (136-145); eGFR For African Americans > 60 (> 60); eGFR For Non-African Americans > 60 (> 60)
[2017-05-22] MEDS: hydrOXYzine pamoate 25 MG CAPSULE PO PRN (18:45)
[2017-05-22] MEDS: traZODone 50 MG TABLET PO PRN (21:05)
[2017-05-22] MEDS: Mirtazapine 15 MG TABLET PO SCH (21:05)
[2017-05-22] MEDS ORDERED: Insulin DETEMIR 100 UNIT/ML X5UNITS SQ SCH (23:00)
--- NOTE | 2017-05-22 23:07 | Internal Medicine Consult Note ---
Addendum entered and electronically signed by En Thakkar CNP 00:31: Patient encounter was on 05/22/17 Original Note: <En Thakkar - Last Filed: 05/23/17 00:18> Date of Encounter: 05/23/17 Time of Encounter: 22:40 - Assessment and Plan (1) Hyperglycemia Current Visit: Yes Status: Acute Assessment and plan: Acute on chronic hyperglycemia. Hx of poorly controlled DM. Pts. BG 300-400 range and pt. continues to eat and drink items that increase her BG. Diabetes education ordered. Diabetic diet. High-dose correction insulin sliding scale w/ hypoglycemia protocol. Levemir 20 units HS added for additional coverage d/t hyperglycemia. BG checks ACHS. Pt. discussed w/Dr. Olivares who is in agreement w/ plan of care. Pt. is high risk for further morbidity d/t uncontrolled DM, phlebitis of LUE, current suicidal ideation, hx, and risk factors. Inpatient. (2) Phlebitis after infusion Current Visit: Yes Status: Acute Assessment and plan: Acute phlebitis of LUE most likely r/t recent infusion. US of LUE ordered to assess for emboli. CTA of chest ordered to r/o PE. Qualifiers: Encounter type: initial encounter Qualified Code(s): T80.1XXA - Vascular complications following infusion, transfusion and therapeutic injection, initial encounter (3) Depression Current Visit: Yes Status: Chronic Assessment and plan: Hx of depression and bipolar disorder. Continue pts. medications. Qualifiers: Depression Type: major depressive disorder Major depression episode severity: severe Psychotic features: without psychotic features Qualified Code(s): F32.2 - Major depressive disorder, single episode, severe without psychotic features (4) Suicidal ideation Current Visit: Yes Status: Chronic Assessment and plan: Hx of suicidal ideation. Hx of thoughts of overdose. Pt. has hx of drug abuse. Denies rehabilitation for drug use or previous psychiatric hospitalization. No hx of previous suicide attempts prior to most recent one. Continue to monitor pt. closely d/t suicidal ideations and increased reported stressors in her life. Internal Medicine - CN: HPI - Data of Consult Consult date: 05/22/17 Requesting Physician: Nicola García - Consult Narrative Reason for consult: Medical mgmt of DM and phlebitis of LUE History of present illness: Ms. Roth is a 26 year old female w/medical hx of poorly controlled diabetes presents from [facility] unit for medical management of her diabetes and for complaint of pain in left arm r/t phlebitis. Pt. also reports hx of drug abuse including marijuana, methamphetamine, and heroin. Patient reports drinking alcohol casually. Patient denies ever being in rehabilitation or being treated with Suboxone, methadone, or Narcan. Pt. denies recent illness, fever, chills, nausea , vomiting, chest pain, palpitations, abdominal pain, dizziness, lightheadedness , pre-syncope, or syncope. Past Med Surg Social Fam HX - Past Medical History Source: patient Medical history: diabetes Psychiatric history: bipolar - Past Surgical History Surgical History: hysterectomy - Social History Smoking Status: Current every day smoker Packs per day: 1 Smokeless Tobacco Status: No Alcohol use: none Drug use: marijuana, methamphetamine, other (Heroin) Current living situation: Home Activity Level: Independent ambulation Recent Out of Country Travel Within the Last 8 Weeks: No Exposure or Possible Exposure to Illness During Travel: No - Constitutional Constitutional: as per HPI - EENT Eyes: as per HPI Ears: as per HPI Nose, mouth and throat: as per HPI - Breasts Breasts: as per HPI - Cardiovascular Cardiovascular ROS IM: as per HPI - Respiratory Respiratory: as per HPI - Gastrointestinal Gastrointestinal: as per HPI - Genitourinary Genitourinary: as per HPI Menstruation: as per HPI, post hysterectomy - Musculoskeletal Musculoskeletal ROS IM: as per HPI - Integumentary Integumentary IM: as per HPI, erythema (Left arm), other (Pain in left arm r/t phlebitis) - Neurological Neurological ROS: as per HPI - Psychiatric Psychiatric: depression - Endocrine Endocrine IM: as per HPI - Hematologic/Lymphatic Hematologic/Lymphatic: as per HPI - Allergic/Immunologic Allergic/Immunologic: as per HPI Internal Medicine - CN: Meds Insulin Aspart Prot/Insuln Asp [Novolog Mix 70-30 Flexpen Syrn] 20 unit SQ BID # 1 insuln.pen 05/20/17 [Rx] 3 Allergy/AdvReac Type Severity Reaction Status Date / Time No Known Allergies Allergy Verified 05/19/17 16:05 Internal Medicine - CN: Exam - Constitutional Vitals: Temp Pulse Resp BP 98.8 F 94 16 106/77 05/22/17 20:30 05/22/17 20:30 05/22/17 20:30 05/22/17 20:30 General appearance IM: Present: cooperative, A&O X 3, no acute distress, underweight - Head Head exam: Present: normal inspection - Eye Eye exam: Present: normal appearance - ENT ENT exam: Present: normal exam - Neck Neck exam general surgery: Present: normal inspection - Respiratory Respiratory exam: Present: CTAB - Cardiovascular Cardiovascular exam IM: Present: RRR, +S1, +S2 - GI/Abdominal GI/Abdominal exam IM: Present: normal bowel sounds, soft, no peritoneal signs - Rectal Rectal exam: Present: deferred - Additional comments: exam deferred. - Extremities Exam Extremities exam IM: Present: warm, radial pulses palpable and symmetrical - Back Exam Back exam: Present: normal inspection - Neurological Exam Neurological exam: Present: alert, oriented X3, no focal deficits - Psychiatric Psychiatric exam: Present: flat affect - Skin Skin exam IM: Present: dry, intact Internal Medicine - CN: Reslt - Labs CBC & Chem 7: 05/22/17 16:02 05/22/17 16:02 Labs: Short CBC 05/22/17 Range/Units 16:02 WBC 5.8 (4.3-11.1) K/mcL Hgb 12.5 D (11.5-15.4) g/dL Hct 38.1 (35.3-44.9) % Plt Count 197 (140-400) K/mcL Neutrophils # 3.2 (1.6-8.9) K/mcL BMP 05/22/17 16:02 Sodium 129 L Potassium 4.8 Chloride 98 Carbon Dioxide 25 BUN 24 H Creatinine 0.57 L Glucose 342 H Calcium 8.7 Consult Discharge Plan - Plan Referrals: Chel Robison [facility] [Outside] (To establish in services, you may walk -in any Saturday through Saturday from 8:00am 12:00pm or 1:00pm 4:00pm. When you come in, you will be completing paperwork, meeting with an phototypesetter operator , and developing a treatment plan. You will receive follow- up appointments for on-going mental health services, which could include community support, individual counseling, groups and/or psychiatric medication management. You may also be referred to see the primary care provider in the clinic if needed as well. Please bring your insurance card, photo ID and medication list when you come in the first time. ) <Stepan Olivares P - Last Filed: 05/23/17 06:54> Date of Encounter: 05/23/17 Internal Medicine - CN: HPI - Data of Consult Requesting Physician: Nicola García - Consult Narrative History of present illness: Ms. Roth is a 26 year old female Internal Medicine - CN: Exam - Constitutional Vitals: Temp Pulse Resp BP 98.8 F 94 16 106/77 05/22/17 20:30 05/22/17 20:30 05/22/17 20:30 05/22/17 20:30 Internal Medicine - CN: Reslt - Labs CBC & Chem 7: 05/22/17 16:02 05/22/17 16:02 Labs: Short CBC 05/22/17 Range/Units 16:02 WBC 5.8 (4.3-11.1) K/mcL Hgb 12.5 D (11.5-15.4) g/dL Hct 38.1 (35.3-44.9) % Plt Count 197 (140-400) K/mcL Neutrophils # 3.2 (1.6-8.9) K/mcL BMP 05/22/17 16:02 Sodium 129 L Potassium 4.8 Chloride 98 Carbon Dioxide 25 BUN 24 H Creatinine 0.57 L Glucose 342 H Calcium 8.7 - Impressions Impressions Chest CTA 05/22/17 23:30 IMPRESSION: Old granulomatous disease. No acute disease or PE. D/ / Harpreet Rhodes MD / Harpreet Rhodes MD Interpreting Provider: Harpreet Rhodes MD - Attending Attestation I examined this patient and my medical decision-making was reviewed with the Resident Physician/EXCELLENCE LEADER. I agree with the documented findings, disposition and treatment plan as described except to the extent set forth below. I have personally examined this patient with nurse practitioner. Young lady with suicidal ideation. She is a type I diabetic and has a strong history of IV drug user. Last time she injected herself was less than a week ago. Now she complains of a left arm pain. We will get ultrasound to rule out deep vein thrombosis and CTA chest to rule out pulmonary embolism/septic emboli. We will readjust her insulin dose and she needs outpatient endocrinology follow- up
[2017-05-23] MEDS: hydrOXYzine pamoate 25 MG CAPSULE PO SCH (04:06)
[2017-05-23] MEDS: Insulin LISPRO 300 UNITS/3 ML VIAL SQ SCH ×5 (08:35→22:24)
[2017-05-23] MEDS: Insulin DETEMIR 100 UNIT/ML X5UNITS SQ SCH (09:35)
[2017-05-23] MEDS ORDERED: Insulin DETEMIR 100 UNIT/ML X5UNITS SQ ONE (14:48)
--- NOTE | 2017-05-23 14:53 | Internal Med Progress Note ---
Date of Encounter: 05/23/17 Time of Encounter: 14:50 - Assessment and plan (1) Diabetes mellitus Current Visit: Yes Status: Acute Assessment and plan: A1c about 14. Uncontrolled still. We will increase Levemir to 30 units twice a day. We will give an extra 10 right now. We will add meal coverage short acting insulin 8 units. Continue with sliding scale. Continue with Accu- Cheks. Diabetic education. Qualifiers: Diabetes mellitus type: type 2 Diabetes mellitus complication status: without complication Diabetes mellitus shelter insulin use: without long term care social worker use Qualified Code(s): E11.9 - Type 2 diabetes mellitus without complications (2) Suicidal ideation Current Visit: Yes Status: Chronic Assessment and plan: per primary (3) Depression Current Visit: Yes Status: Chronic Assessment and plan: per primary Qualifiers: Depression Type: major depressive disorder Major depression episode severity: severe Psychotic features: without psychotic features Qualified Code(s): F32.2 - Major depressive disorder, single episode, severe without psychotic features - Subjective Interval history: No acute events. The patient has been afebrile. Admitted to the psych unit Center asked to see the patient for hyperglycemia. Glucose continues to be uncontrolled with readings in the 300s and 400s. Patient has a history of noncompliance. - Constitutional Vitals: Temp Pulse Resp BP 97.8 F 85 16 95/66 05/23/17 09:00 05/23/17 09:00 05/23/17 09:00 05/23/17 09:00 General appearance: Present: cooperative, A&O X 3, no acute distress, underweight Exam: GEN: NAD CVS: RRR. S1, S2, No m/r/g RESP: CTAB ABD: Soft, NT, ND, +BS EXT: No edema. 2+ DP. No rashes NEURO: Nonfocal Internal Medicine: Result - Labs CBC & Chem 7: 05/22/17 16:02 05/22/17 16:02 Labs: Short CBC 05/22/17 Range/Units 16:02 WBC 5.8 (4.3-11.1) K/mcL Hgb 12.5 D (11.5-15.4) g/dL Hct 38.1 (35.3-44.9) % Plt Count 197 (140-400) K/mcL Neutrophils # 3.2 (1.6-8.9) K/mcL BMP 05/22/17 16:02 Sodium 129 L Potassium 4.8 Chloride 98 Carbon Dioxide 25 BUN 24 H Creatinine 0.57 L Glucose 342 H Calcium 8.7 - Impressions Impressions Extremity Ultrasound 05/22/17 22:44 IMPRESSION: Echogenicity of 1.5 cm length in a superficial vein in the antecubital fossa consistent with superficial venous thrombosis. D/ / Oliva Short MD / Oliva Short MD Interpreting Provider: Oliva Short MD Chest CTA 05/22/17 23:30 IMPRESSION: Old granulomatous disease. No acute disease or PE. D/ / Harpreet Rhodes MD / Harpreet Rhodes MD Interpreting Provider: Harpreet Rhodes MD - VTE Reasons for not Prescribing Prophylaxis: Treatment not Indicated - Low risk for VTE Consult Discharge Plan - Plan Referrals: Chel Robison [facility] [place] [Outside] (To establish in services, you may walk -in any Saturday through Saturday from 8:00am 12:00pm or 1:00pm 4:00pm. When you come in, you will be completing paperwork, meeting with an motor installer , and developing a treatment plan. You will receive follow- up appointments for on-going mental health services, which could include community support, individual counseling, groups and/or psychiatric medication management. You may also be referred to see the primary care provider in the clinic if needed as well. Please bring your insurance card, photo ID and medication list when you come in the first time. ) Petrona Shearer MD [Partnered Physician] - 07/16/17 9:00 am (The above appointment is with the interlocking machine operator, Dr. Shearer. Office staff will contact you if an appointment becomes available sooner. This is the first new patient appointment.)
--- NOTE | 2017-05-23 15:00 | Psychiatry Progress Note ---
Date of Encounter: 05/23/17 Time of Encounter: 14:35 Subjective Interval history: The patient has reported that she has depression but that she is interested in going back home. She agrees to go to [facility]. Her mother visited and the patient ate Oreos and diet Sprite. The patient recognizes that she has a problem with diabetes. She recognizes the need for multiple tests. The reader is referred to the internal medicine consultation. The patient was told that she needed to see an engineering scientist for this diabetes and to get better control. She was also told that she will need to go to her family doctor to follow up on the x-ray for granulomatous disease but was not important. We did discuss diet and compliance. The patient did not evidence significant suicidal behavior but was downcast and tired as she been up all night with additional medical testing Review of Systems Musculoskeletal: Reports: myalgia Psychiatric: Reports: depression, anxiety, suicidal ideation, change in appetite Objective: Exam Patient orientation: Yes Person, Yes Time, Yes Place Level of alertness: Sedated Patient appearance: Appropriate Behavior: tearful, uncooperative Psychomotor activity: Slowed Eye contact: Minimal Contact Mood description: Depressed, Anxious Affect description: blunted Speech pattern: Normal rate, Normal rhythm Speech volume: Normal Thought process: Logical, Linear Thought content: Yes Suicidal ideation Judgment: Limited Insight: Minimal Results - Vital Signs Vital Signs: Temp Pulse Resp BP 97.8 F 85 16 95/66 05/23/17 09:00 05/23/17 09:00 05/23/17 09:00 05/23/17 09:00 - Labs Labs: Laboratory Results - last 24 hr 05/22/17 05/22/17 05/22/17 16:02 16:02 16:02 WBC 5.8 RBC 4.22 Hgb 12.5 D Hct 38.1 MCV 90.3 MCH 29.6 MCHC 32.8 RDW 12.9 Plt Count 197 MPV 11.0 Immature Gran % 0.9 Seg Neutrophils % 55.0 Lymphocytes % 37.2 Monocytes % 5.4 Eosinophils % 1.0 Basophils % 0.5 Neutrophils # 3.2 Lymphocytes # 2.1 Monocytes # 0.3 Eosinophils # 0.1 Basophils # 0.0 Nucleated RBCs/100 WBC 0.3 H Sodium 129 L Potassium 4.8 Chloride 98 Carbon Dioxide 25 BUN 24 H Creatinine 0.57 L Est GFR ( Amer) > 60 Est GFR (Non-Af Amer) > 60 BUN/Creatinine Ratio 42 H Glucose 342 H POC Glucose Est Mean Plasma Glucose > 355 Hemoglobin A1c >= 14.1 H Calculated Osmolality 286 Calcium 8.7 05/22/17 05/22/17 05/22/17 16:41 20:00 22:27 WBC RBC Hgb Hct MCV MCH MCHC RDW Plt Count MPV Immature Gran % Seg Neutrophils % Lymphocytes % Monocytes % Eosinophils % Basophils % Neutrophils # Lymphocytes # Monocytes # Eosinophils # Basophils # Nucleated RBCs/100 WBC Sodium Potassium Chloride Carbon Dioxide BUN Creatinine Est GFR ( Amer) Est GFR (Non-Af Amer) BUN/Creatinine Ratio Glucose POC Glucose 351 H 350 H 448 H* Est Mean Plasma Glucose Hemoglobin A1c Calculated Osmolality Calcium 05/22/17 05/23/17 05/23/17 22:30 08:03 11:38 WBC RBC Hgb Hct MCV MCH MCHC RDW Plt Count MPV Immature Gran % Seg Neutrophils % Lymphocytes % Monocytes % Eosinophils % Basophils % Neutrophils # Lymphocytes # Monocytes # Eosinophils # Basophils # Nucleated RBCs/100 WBC Sodium Potassium Chloride Carbon Dioxide BUN Creatinine Est GFR ( Amer) Est GFR (Non-Af Amer) BUN/Creatinine Ratio Glucose POC Glucose 448 H* 388 H 402 H* Est Mean Plasma Glucose Hemoglobin A1c Calculated Osmolality Calcium 05/23/17 11:39 WBC RBC Hgb Hct MCV MCH MCHC RDW Plt Count MPV Immature Gran % Seg Neutrophils % Lymphocytes % Monocytes % Eosinophils % Basophils % Neutrophils # Lymphocytes # Monocytes # Eosinophils # Basophils # Nucleated RBCs/100 WBC Sodium Potassium Chloride Carbon Dioxide BUN Creatinine Est GFR ( Amer) Est GFR (Non-Af Amer) BUN/Creatinine Ratio Glucose POC Glucose 410 H* Est Mean Plasma Glucose Hemoglobin A1c Calculated Osmolality Calcium - Impressions ITS Impressions Extremity Ultrasound 05/22/17 22:44 IMPRESSION: Echogenicity of 1.5 cm length in a superficial vein in the antecubital fossa consistent with superficial venous thrombosis. D/ / Oliva Short MD / Oliva Short MD Interpreting Provider: Oliva Short MD Chest CTA 05/22/17 23:30 IMPRESSION: Old granulomatous disease. No acute disease or PE. D/ / Harpreet Rhodes MD / Harpreet Rhodes MD Interpreting Provider: Harpreet Rhodes MD Assessment and Plan (1) Other recurrent depressive disorders Current visit: Yes Status: Acute Plan: Continue hospitalization, Close observation, Suicide Precautions per unit protocol, Encourage participation in unit milieu, Monitor appetite, Family/ Supportive other meeting Risks, benefits, side effects, alternatives discussed w/pt: Yes Patient agreeable to treatment: Yes (2) Suicidal ideations Current visit: Yes Status: Acute Plan: Continue hospitalization, Close observation, Encourage participation in unit milieu Risks, benefits, side effects, alternatives discussed w/pt: Yes Patient agreeable to treatment: Yes (3) Other stimulant dependence with withdrawal Current visit: Yes Status: Acute Plan: Continue hospitalization, Family/Supportive other meeting Risks, benefits, side effects, alternatives discussed w/pt: Yes Patient agreeable to treatment: Yes (4) Uncontrolled type 2 DM with hyperosmolar nonketotic hyperglycemia Current visit: No Status: Acute Plan: Continue hospitalization Risks, benefits, side effects, alternatives discussed w/pt: Yes (medicine consult) Patient agreeable to treatment: Yes ( endocrinology follow-up) (5) Phlebitis after infusion Current visit: Yes Status: Acute Plan: Continue hospitalization Risks, benefits, side effects, alternatives discussed w/pt: Yes (see interanl med consult) Patient agreeable to treatment : Yes Qualifiers: Encounter type: initial encounter Qualified Code(s): T80.1XXA - Vascular complications following infusion, transfusion and therapeutic injection, initial encounter Consult Discharge Plan - Plan Referrals: Chel Robison [facility] [Outside] (To establish in services, you may walk -in any Saturday through Saturday from 8:00am 12:00pm or 1:00pm 4:00pm. When you come in, you will be completing paperwork, meeting with an special needs bus driver , and developing a treatment plan. You will receive follow- up appointments for on-going mental health services, which could include community support, individual counseling, groups and/or psychiatric medication management. You may also be referred to see the primary care provider in the clinic if needed as well. Please bring your insurance card, photo ID and medication list when you come in the first time. ) Petrona Shearer MD [Partnered Physician] - 07/16/17 9:00 am (The above appointment is with the engineering scientist, Dr. Shearer. Office staff will contact you if an appointment becomes available sooner. This is the first new patient appointment.)
[2017-05-23] MEDS ORDERED: Insulin DETEMIR 100 UNIT/ML X5UNITS SQ SCH (21:00)
[2017-05-23] MEDS: traZODone 50 MG TABLET PO PRN (22:23)
[2017-05-23] MEDS: Mirtazapine 15 MG TABLET PO SCH (22:23)
[2017-05-24 02:34] VITALS: BP 102/66
[2017-05-24 07:09] LABS: BUN/Creatinine Ratio 44 (6-26); Blood Urea Nitrogen 18 mg/dL (6-20); Calcium 8.8 mg/dL (8.6-10.3); Carbon Dioxide 28 mEq/L (23-29); Chloride 106 mEq/L (98-107); Glucose 78 mg/dL (70-105); Osmolality,Calculated 289 (280-300); Potassium 4.1 mEq/L (3.5-5.1); Sodium 139 mEq/L (136-145); eGFR For African Americans > 60 (> 60); eGFR For Non-African Americans > 60 (> 60)
[2017-05-24] MEDS: Insulin LISPRO 300 UNITS/3 ML VIAL SQ SCH ×4 (08:23→11:48)
[2017-05-24] MEDS ORDERED: Insulin DETEMIR 100 UNIT/ML X5UNITS SQ SCH (09:00)
--- NOTE | 2017-05-24 10:04 | Discharge Summary ---
Date of Encounter: 05/24/17 Time of Encounter: 10:00 Diagnosis - Discharge Diagnosis (1) Other recurrent depressive disorders Status: Acute (2) Suicidal ideations Status: Resolved (3) Other stimulant dependence with withdrawal Status: Resolved (4) Uncontrolled type 2 DM with hyperosmolar nonketotic hyperglycemia Status: Acute (5) Phlebitis after infusion Status: Acute Qualifiers: Encounter type: initial encounter Qualified Code(s): T80.1XXA - Vascular complications following infusion, transfusion and therapeutic injection, initial encounter Medications - Discharge Medications Prescriptions: hydrOXYzine pamoate [HydrOXYzine Pamoate] 25 mg PO TID PRN 30 Days #90 capsule PRN Reason: Anxiety Insulin Aspart Prot/Insuln Asp [Novolog Mix 70-30 Flexpen Syrn] 20 unit SQ BID 30 Days #30 insuln.pen Insulin DETEMIR [Levemir] 30 unit SQ 0900 30 Days #30 [id number] Insulin DETEMIR [Levemir] 30 unit SQ HS 30 Days #30 [id number] Mirtazapine [Remeron] 15 mg PO HS 30 Days #30 tablet traZODone [TraZODone] 50 mg PO HS PRN 30 Days #30 tablet PRN Reason: Insomnia Insulin Aspart Prot/Insuln Asp [Novolog Mix 70-30 Flexpen Syrn] 20 unit SQ BID 30 Days #30 insuln.pen 05/24/17 [Rx] Insulin DETEMIR [Levemir] 30 unit SQ 0900 30 Days #30 [id number] 05/24/17 [Rx] Insulin DETEMIR [Levemir] 30 unit SQ HS 30 Days #30 [id number] 05/24/17 [Rx] Mirtazapine [Remeron] 15 mg PO HS 30 Days #30 tablet 05/24/17 [Rx] hydrOXYzine pamoate [HydrOXYzine Pamoate] 25 mg PO TID PRN 30 Days #90 capsule 05/24/17 [Rx] traZODone [TraZODone] 50 mg PO HS PRN 30 Days #30 tablet 05/24/17 [Rx] 3 Allergy/AdvReac Type Severity Reaction Status Date / Time No Known Allergies Allergy Verified 05/19/17 16:05 Results Procedures and tests throughout hospitalization: Completed Lab Orders Category Date Time Status BMP [Basic Metabolic Panel] AM 0400 Lab 05/24/17 06:46 Completed BMP [Basic Metabolic Panel] Stat Lab 05/22/17 16:02 Completed CBC [Complete Blood Count] [HEME] Stat Lab 05/22/17 16:02 Completed Hgb A1C Stat Lab 05/22/17 16:02 Completed Completed Imaging Orders Category Date Time Status CT angio chest [CT] Routine Cat Scan 05/22/17 23:30 Completed US extremity nonvascular LT [US] Routine Exams 05/22/17 22:44 Completed Provider Date of admission: 05/20/17 21:32 Primary care physician: PCP NONE Consults: 05/22/17 14:56 Consult to Hospitalist [CONS] Routine Consulting Provider: Dwain Serrano Reason for Consult: Uncontrolled DM, phlebitis related to potassium infusion Call Completed: Yes 05/23/17 00:09 Consult to Diabetes Education [CONS] Routine Comment: Reason for Consult: Patient has uncontrolled DM and is non-compliant w/diet. Please provide education regarding DM mgmt. Discharging clinician: Nicola García Assessment and Plan - Patient/Caregiver Discharge Instructions Activity: resume usual activities as tolerated Diet: diabetic diet - Follow up Plan Follow up with: Chel Robison [facility] [place] [Outside] (To establish in services, you may walk -in any Saturday through Saturday from 8:00am 12:00pm or 1:00pm 4:00pm. When you come in, you will be completing paperwork, meeting with an manager statistics , and developing a treatment plan. You will receive follow- up appointments for on-going mental health services, which could include community support, individual counseling, groups and/or psychiatric medication management. You may also be referred to see the primary care provider in the clinic if needed as well. Please bring your insurance card, photo ID and medication list when you come in the first time. ) Petrona Shearer MD [Partnered Physician] - 07/16/17 9:00 am (The above appointment is with the stubber, Dr. Shearer. Office staff will contact you if an appointment becomes available sooner. This is the first new patient appointment.) Functional capacity at discharge: independent ambulation Overall status at discharge: patient is progressing back to baseline Disposition: Home, Self-Care Hospital Course Hospital course: Ms. Roth is a 26 year old female The patient was admitted from the ICU after an overdose of heroin. While the patient acknowledged using heroin to attempt to kill herself she also reported that she did not a problem with heroin dependence or withdrawal. Rather she had a predominant problem with methamphetamine. This was confirmed by talking to family members. The patient has 3 young children and when she came to the unit she has to leave in order to go be with. Nonetheless the patient had noncompliance with her diet eating Oreos and sometimes sugary drinks. She felt hungry all the time. Consults for diabetic diet and for internal medicine to see her. The patient also developed phlebitis of the left forearm on the volar surface. She also had a chest x-ray that showed granulomatous disease without significant evidence of malignancy.\ Patient was placed on 15 mg mirtazapine. The patient tolerated this dose but noted some nightmares and aspirin did not be increased. She also was on hydroxyzine the daytime for anxiety she tolerated this without significant difficulty . The patient agreed to the discharge plan which was to go to [facility] when she is discharged so that she can follow up for services she did not want to go for residential substance abuse rehabilitation. Vision agreed that Uriel. depression was a problem that was holding her back as well as her noncompliance with diabetes and medication management. She was recommended to abstain from alcohol drugs of abuse - Time Spent with Patient Total time spent providing and/or coordinating discharge services: Less than 30 minutes Quality - Multiple Antipsychotics Patient discharged on 2 or more antipsychotic medications: No Procedures - Procedures Procedures: Medication Management, Crisis Stabilization, Supportive Therapy, Group Therapy, Psychoeducational Therapy Mental Status Exam - Mental Status Exam Patient orientation: Yes Person, Yes Time, Yes Place Level of alertness: Alert Patient appearance: Appropriate, Well Groomed Behavior: calm, cooperative, nervous Psychomotor activity: Slowed Eye contact: Maintains Eye Contact Mood description: Anxious Affect description: congruent with mood, full range Speech pattern: Normal rate, Normal rhythm, Normal tone Speech Volume: Normal Thought process: Linear, Goal Oriented Thought Content: No Suicidal ideation, No Homicidal ideation, No Overt delusions Perceptual Disturbances: No Auditory hallucinations, No Visual hallucinations Judgment: Fair Insight: Partial
== END 2017-05-24 12:12 | disposition home or self-care (01) | DRG 885 ==
LOC: 1ANU 21:32
PROVIDERS: ADMIT Psychiatry & Neurology Forensic Psychiatry; ATTEND Psychiatry & Neurology Forensic Psychiatry